=== PATIENT | male | born 1955 | race Caucasian/White ===

== ENCOUNTER → 2021-12-13 13:26 | Outpatient (CLI) | payer MEDICARE, SELFPAY ==
--- NOTE | ~2021-12-13 | XR_ITS ---
EXAMINATION: XR lumbar spine 6V w bending DATE: 12/13/2021 14:21 INDICATION: Right-sided low back pain. Right lower quadrant abdominal pain. Muscle strain. TECHNIQUE: 7 views of lumbar spine including flexion and extension views were obtained. COMPARISON: Lumbar spine radiograph 10/11/2013 FINDINGS: Bone alignment is normal. The spine is hypomobile with flexion and extension. Vertebral bod y heights are normal. There is mildly decreased disc height at L3-L4. There are endplate osteophytes at most levels. There is multilevel mild facet joint osteoarthritis. IMPRESSION: 1. Mild lumbar spondylosis. Reviewed, dictated and finalized at location A. IMPRESSION: 1. Mild lumbar spondylosis.
== END ==
PROVIDERS: PCP Physician Assistant; Visit Provider Physician Assistant
DX: R10.31 Right lower quadrant pain (principal); M47.896 Other spondylosis, lumbar region
CPT/HCPCS: 72114

== ENCOUNTER → 2022-10-03 11:13 | Outpatient (CLI) | payer MEDICARE, SELFPAY ==
--- NOTE | ~2022-10-03 | CT_ITS ---
EXAMINATION: CT pelvis wo con DATE: 10/03/2022 11:26 INDICATION: Right inguinal pain TECHNIQUE: Computed tomography (CT) of the pelvis was performed without intravenous contrast. Automat ed exposure control and iterative reconstruction technique were employed. Automated exposure control and iterative reconstruction technique were employed. The dose-length product was 568.25 mGy-cm. COMPARISON: None FINDINGS: Small fat-containing umbilical hernia. Moderate scattered diverticulosis along the visualized colon w ithout adjacent from 3 change to suggest diverticular colitis. The appendix and visualized small az[place] ls are unremarkable. Bladder is normal. Small fat-containing right inguinal hernia which appears to i nclude both direct and indirect components and large fat-containing indirect left inguinal hernia whi ch extends into the base of the scrotum. No free intraperitoneal gas or fluid in the pelvis and visua lized lower abdomen. No pathologically enlarged pelvic, inguinal or lower abdominal lymphadenopathy. There is calcified atherosclerosis of the aorta and many of the other arteries, potentially minimally significant at the bilateral common iliac arteries. Polyarticular osteoarthritis, severe at the righ t hip and mild at the left hip and bilateral sacroiliac joints. IMPRESSION: 1. Small right and moderate-sized left fat-containing inguinal hernias. 2. Severe right hip osteoarthritis. Reviewed, dictated and finalized at location A.
== END ==
PROVIDERS: PCP Internal Medicine; Visit Provider Internal Medicine
DX: R10.31 Right lower quadrant pain (principal); M16.11 Unilateral primary osteoarthritis, right hip; K40.90 Unilateral inguinal hernia, without obstruction or gangrene, not specified as recurrent
CPT/HCPCS: 72192

== ENCOUNTER 2024-04-25 14:10 | Outpatient (CLI) | payer MEDICARE, SELFPAY ==
--- NOTE | ~2024-04-25 | MR_ITS ---
EXAMINATION: MR femur RT wo con DATE: 04/25/2024 14:57 INDICATION: Right thigh pain. TECHNIQUE: Magnetic resonance imaging (MRI) of the right femur was performed without intravenous cont rast. COMPARISON: Pelvis CT 10/03/2022. FINDINGS: Alignment is normal. No fracture. The muscles are normal. The neurovascular bundles are nor mal. IMPRESSION: 1. No etiology for the patient's symptoms. Reviewed, dictated and finalized at location A. 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
== END 2024-04-25 14:11 | disposition home or self-care (01) ==
LOC: MICIMG 14:11
PROVIDERS: PCP Internal Medicine; Visit Provider Internal Medicine
DX: M79.651 Pain in right thigh (principal)
CPT/HCPCS: 73718